=== PATIENT | female | born 1975 | race Caucasian/White ===

== ENCOUNTER 2017-12-25 03:25 | Inpatient (IN) | payer BC ==
[~2017-12-25] VITALS: Ht 160 cm; Wt 74.4 kg
[2017-12-25 03:25] VITALS: BP_SYST 132
[2017-12-25] MEDS ORDERED: NACL 0.9% 1,000 ML IV ONE (04:00)
[2017-12-25] MEDS ORDERED: fentaNYL CITRATE/PF 100 MCG/2 ML AMP IVP ONE (04:15)
[2017-12-25] MEDS ORDERED: DIPHENHYDRAMINE INJ 50 MG/ML VIAL IVP ONE (04:15)
[2017-12-25 04:29] LABS: BASOPHILS # (AUTO) 0.1 K/uL (0.0-0.2); BASOPHILS % (AUTO) 0.5 % (0.0-2.0); EOSINOPHILS # (AUTO) 0.1 K/uL (0.0-0.4); EOSINOPHILS % (AUTO) 0.7 % (0.0-4.0); HEMATOCRIT 34.3 % (36-48); LYMPHOCYTES # (AUTO) 1.4 K/uL (1.0-5.5); LYMPHOCYTES % (AUTO) 11.9 % (20.5-51.5); MEAN CORPUSCULAR HEMOGLOBIN 25 pg (27-31); MEAN CORPUSCULAR HGB CONC 32 % (32-36); MEAN CORPUSCULAR VOLUME 77 fL (79.0-98.0); MONOCYTES # (AUTO) 0.4 K/uL (0.0-1.0); NEUTROPHILS % (AUTO) 83.9 % (40.0-70.0); PLATELET COUNT (AUTO) 320 K/uL (130-430); RED BLOOD CELL COUNT(AUTO) 4.47 MIL/uL (4.2-6.2); RED CELL DISTRIBUTION WIDTH 17.9 % (9.0-15.0)
[2017-12-25 04:43] LABS: CALCIUM 8.7 mg/dL (8.4-11.0); CREATININE 0.66 mg/dL (0.55-1.30); POTASSIUM 3.6 mmol/L (3.5-5.1)
[2017-12-25] MEDS ORDERED: LR 1,000 ML IV SCH (05:15)
[2017-12-25 05:39] VITALS: BP_SYST 124
[2017-12-25 08:00] VITALS: BP_SYST 111
[2017-12-25] MEDS ORDERED: CEFAZOLIN 1 GM IVPB PREMIX 50 ML IV ONE (10:15)
[2017-12-25 10:58] LABS: INR 1.1 (0.8-1.2); PROTHROMBIN TIME 10.8 SECS (9.5-12.5)
[2017-12-25] MEDS ORDERED: MIDAZOLAM HCL 5 MG/ML VIAL (VERSED) IV ONE (12:50)
[2017-12-25] MEDS ORDERED: OXYTOCIN 10 UNIT/ML VIAL ONE ×2 (12:50→12:51)
[2017-12-25] MEDS ORDERED: SEVOFLURANE 15 MIN GAS INH ONE (12:50)
[2017-12-25] MEDS ORDERED: fentaNYL CITRATE/PF 100 MCG/2 ML AMP ONE (12:50)
[2017-12-25] MEDS ORDERED: LR 1,000 ML IV.SOLN IV ONE (12:50)
[2017-12-25] MEDS ORDERED: PROPOFOL 200MG/ 20ML VIAL (DIPRIVAN) IV ONE (12:50)
[2017-12-25 12:59] VITALS: BP_SYST 145
[2017-12-25] MEDS ORDERED: HYDROcodone/ACETAMIN 5-325 MG TAB (NORCO/ VICODIN) PO PRN (13:00)
[2017-12-25] MEDS ORDERED: ONDANSETRON HCL 4 MG/2 ML VIAL IVP PRN (13:00)
[2017-12-25] MEDS ORDERED: KETOROLAC TROMETHAMINE 30 MG VIAL IVP PRN (13:45)
[2017-12-25] MEDS ORDERED: fentaNYL CITRATE/PF 100 MCG/2 ML AMP IVP PRN ×2 (13:45)
[2017-12-25 16:04] VITALS: BP_SYST 113
== END 2017-12-25 16:45 | disposition home or self-care (01) | DRG 770 ==
LOC: SED 03:25 → SMU 05:15
PROVIDERS: ADMIT Specialist; ATTEND Specialist
PROC: 10D17ZZ Extraction of Products of Conception, Retained, Via Natural or Artificial Opening (ICD-10-PCS; principal; 2017-12-25 11:00)
DX: O03.4 Incomplete spontaneous abortion without complication (principal); O99.411 Diseases of the circulatory system complicating pregnancy, first trimester; O99.011 Anemia complicating pregnancy, first trimester; R00.1 Bradycardia, unspecified; D64.9 Anemia, unspecified; Z3A.09 9 weeks gestation of pregnancy
CPT/HCPCS: 36415; 80048; 84702-TC; 85025; 85610-TC; 85730-TC; 86900; 86901; 87081; 88305; 96361; 96374; 96375; 99285; J0690; J1200; J2250; J2590; J2704; J3010; J7030; J7120

== ENCOUNTER 2019-12-20 15:53 | Emergency (ER) | payer BC, OTHER ==
[~2019-12-20] VITALS: Ht 160 cm; Wt 82.6 kg
[2019-12-20 16:04] VITALS: BP_SYST 158
[2019-12-20] MEDS ORDERED: RHO(D) IMMUNE GLOBULIN/MALTOSE 1500 UNITS/1.3 ML (WINHRO) INJ ONE (17:15)
[2019-12-20 20:01] VITALS: BP_SYST 158
== END 2019-12-20 20:01 | disposition home or self-care (01) ==
LOC: SED 15:53
DX: Z29.13 Encounter for prophylactic Rho(D) immune globulin (principal)
CPT/HCPCS: 36415; 86886; 86900; 86901; 96372; 99283; J2790; J2792

== ENCOUNTER 2020-12-11 09:52 | Outpatient (CLI) | payer OTHER | END 2020-12-11 20:44 | disposition home or self-care (01) | LOC: SRD 09:52 | PROVIDERS: ATTEND Specialist | DX: N97.9 Female infertility, unspecified (principal); N92.6 Irregular menstruation, unspecified | CPT/HCPCS: 58340; 74740; C1751; Q9967 ==